=== PATIENT | female | born 1940 | race Caucasian/White ===

== ENCOUNTER → 2016-07-07 | Outpatient (CLI) | payer OTHER ==
[~2016-07-07] MED LIST: ADULT LOW DOSE81 M1 PO; AVAPRO150 MG PO; DEXILANT60 MG PO; HYDROCHLOROTHIA25 MG PO; LEVAQUIN500 MG PO
== END | disposition home or self-care (01) ==
LOC: NUC 07:16
DX: R10.13 Epigastric pain (principal)
CPT/HCPCS: 78264; A9541